=== PATIENT | male | born 1985 | race Caucasian/White ===

== ENCOUNTER 2022-02-02 11:36 | Emergency (ER) | payer OTHER ==
[2022-02-02 12:35] LABS: BASOPHIL 0.4 % (0-2); EOSINOPHIL 1.6 % (0-5); HCT 44.8 % (42.0-52.0); LYMPHOCYTE 36.6 % (15-48); MCH 29.3 pg (25.0-31.0); MCHC 33.5 g/dL (32.0-36.0); MCV 87.5 fL (78.0-100.0); MONOCYTE 6.5 % (0-12); MPV 11.7 fL (6.0-9.5); NEUTROPHIL 54.7 % (41-80); NRBC 0; PLT 266 K/uL (150-400); RBC 5.12 M/uL (4.70-6.00); RDW 13.9 % (11.5-14.0); WBC 12.5 K/uL (4.0-10.5)
[2022-02-02 12:49] LABS: BUN/CREAT RATIO (CALC) 16.1 RATIO; CREATININE 0.87 mg/dL (0.67-1.17); POTASSIUM 3.8 mmol/L (3.5-5.1)
[2022-02-02 13:12] LABS: CLARITY CLEAR (CLEAR); COLOR YELLOW (YELLOW); PROTEIN TRACE (LOW) mg/dL (NEGATIVE); SPECIFIC GRAVITY >=1.030 (1.001-1.030); pH 5.5 (5.0-9.0)
[2022-02-02 13:13] LABS: BILIRUBIN NEGATIVE (NEGATIVE); BLOOD TRACE-INTACT Ery/uL (NEGATIVE); GLUCOSE (U) NORMAL (NORMAL); LEUKOCYTES NEGATIVE Leu/uL (NEGATIVE); NITRITE NEGATIVE (NEGATIVE)
[2022-02-02 13:15] LABS: MUCOUS TRACE
[2022-02-02 13:16] LABS: CALCIUM OXALATE CRYSTALS MODERATE
[2022-02-02] MEDS ORDERED: KETOROLAC TROME10 MG PO (13:23)
[2022-02-02] MEDS ORDERED: FLOMAX 0.4 MG0.4 MG PO (13:23)
[2022-02-02] MEDS ORDERED: NORCO 5/3251 EACH PO (13:23)
== END 2022-02-02 13:33 | disposition home or self-care (01) ==
LOC: FER 11:36
PROVIDERS: Emergency Medicine
DX: N13.0 Hydronephrosis with ureteropelvic junction obstruction (principal); Z88.2 Allergy status to sulfonamides; Z28.310 Unvaccinated for COVID-19
CPT/HCPCS: 36415; 80048; 81001; 85025; J1885; J2405